=== PATIENT | female | born 1950 | race Caucasian/White ===

== ENCOUNTER → 2020-10-29 12:49 | Outpatient (CLI) | payer MEDICARE, OTHER, SELFPAY ==
--- NOTE | 2020-10-29 | DI.RAD.S_ITS ---
PROCEDURE: FL BARIUM SWALLOW W SPEECH INDICATIONS: Dysphagia, unspecified COMPARISON: None. TECHNIQUE: Examination was conducted in conjunction with speech pathology per standard protocol. In the lateral projection, filming was performed of the patient swallowing. AP projection filming may also be performed with patient swallowing. COMPARISON: FINDINGS: Function: The oral preparatory phase appears normal, with proper containment. The subsequent oral propulsive phase, pharyngeal phase, and esophageal phase of swallowing also appear normal with all proffered substances. No laryngotracheal penetration or aspiration. No pathologic vallecular pooling. Morphology: No cricopharyngeal bar is identified. No cervical esophageal webs. No Zenker's diverticulum. No strictures. IMPRESSION: Over the course of the examination there are several instances of anterior penetration without aspiration of the ingested oral contrast, but the study shows no visualized evidence of dysmotility, either bilateral or unilateral. Please also refer to the dedicated speech therapy swallowing evaluation report, which will be independently generated. Dictated by: Pedro Weems M.D. on 10/29/2020 at 14:36 Approved by: Pedro Weems M.D. on 10/29/2020 at 14:37
--- NOTE | 2020-11-01 11:16 | ST.SWALLOW ---
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 Pt was referred by Dr. Holly , ENT. Pt reported that, for the last couple of months, that she feels a burningpain mid chest when she is eating/ drinking. She noted that she has a medical history of GERD and cerebral aneurism surgery. In addition to the pain with swallowing the pt c/o burping all the time. Additionally, when she bends over she feels a heavy pressure in her chest area. Liquids appear to be a problem in that she can't swallow them sometimes, reporting they stay in my mouth til I spit it out. Solids were reported to be swallowed without difficulty. Subjective Observations Pt was seated in fluoroscopy chair. Instructions and procedure were described to the pt, who indicated she understood and agreed to proceed. Patient Positioning Position View Lateral Imaging Lateral View Textures Administered Trials Presented Thin Liquid via Spoon,Thin Liquid via Cup,Pudding Thick Liquid via Spoon,Regular Textures,Barium Tablet Oral Phase Source: MBSIMP (TM) (C) Bolus Specific Scoring Grid Lip Closure WFL Tongue Control During Bolus Hold WFL Bolus Prep/Mastication WFL Bolus Transport/Lingual Motion WFL A/P Lingual Propulsion Delay No Oral Residue WFL Nasal Regurgitation No Additional Oral Phase Observations OME was observed to be WFL. Natural dentition in good health. Diadochokineses WFL. Pharyngeal Phase Source: MBSIMP (TM) (C) Bolus Specific Scoring Grid Delayed Initiation of Pharyngeal Swallow No: Propmpt swallow Soft Palate Elevation WFL Tongue Base Strength/Range of Motion WFL Residue Along the Tongue Base Yes: Trace to minimal; cleared with second swallow Clearance of Residue Along Tongue Base WFL Laryngeal Elevation WFL Anterior Hyoid Movement WFL Epiglottic Range of Motion WFL Vallecular Residue Yes: Trace to minimal; cleared with second swallow Clearance of Vallecular Residue WFL Laryngeal Vestibular Closure WFL Pharyngeal Stripping Wave WFL Posterior Pharyngeal Wall Residue No Upper Esophageal Sphincter Opening WFL Residue in the Pyriform Sinuses No Esophageal Clearance Upright Position WFL Pharyngoesophageal Backflow Observed No Additional Pharyngeal Phase Observations The pt presented with a normal swallow. Flash laryngeal penetration was observed without aspiration, which is considered to be WFL for people her age. Trace to minimal residual was observed but was cleared with subsequent swallows. During the MBSS, the pt was asked several times if she was experiencing the pain, she initially reported. She denied pain and/or any difficulty with her swallow. A/P View Clinical Impressions Dysphagia Type Normal swallow Patient Appropriate for Therapy No Recommendations
== END ==
PROVIDERS: PCP Family Medicine; Referring Provider Family Medicine; Visit Provider Otolaryngology
DX: R13.10 Dysphagia, unspecified (principal); R07.0 Pain in throat; R09.82 Postnasal drip; K21.9 Gastro-esophageal reflux disease without esophagitis
CPT/HCPCS: 74230; 92611

== ENCOUNTER → 2021-08-10 09:03 | Outpatient (CLI) | payer MEDICARE, OTHER, SELFPAY ==
--- NOTE | 2021-08-10 | DI.MG.S_ITS ---
BILATERAL DIGITAL SCREENING MAMMOGRAM 3D/2D WITH CAD: 08/10/2021 CLINICAL: Routine screening. Family history of breast cancer. Comparison is made to exams dated: 03/25/2018 mammogram, 02/28/2017 mammogram, and 12/08/2015 mammogram - [facility]. There are scattered fibroglandular elements in both breasts. Current study was also evaluated with a Computer Aided Detection (CAD) system. No significant masses, calcifications, or other findings are seen in either breast. There has been no significant interval change. IMPRESSION: NEGATIVE There is no mammographic evidence of malignancy. A 1 year screening mammogram is recommended. This exam was interpreted at Station ID: [id number]. NOTE: For mammograms, a report in lay terms will be sent to the patient. Approximately 15% of breast malignancies will not be visualized mammographically. In the management of a palpable breast mass, a negative mammogram must not discourage biopsy of a clinically suspicious lesion. Electronically Signed By: Wally blackman/antony:08/10/2021 14:18:58 letter sent: Normal Exam ACR BI-RADS Category 1: Negative [id number]
== END ==
PROVIDERS: PCP Family Medicine; Referring Provider Family Medicine; Visit Provider Family Medicine
DX: Z12.31 Encounter for screening mammogram for malignant neoplasm of breast (principal); Z80.3 Family history of malignant neoplasm of breast
CPT/HCPCS: 77063; 77067

== ENCOUNTER → 2023-05-30 11:05 | Outpatient (CLI) | payer MEDICARE, OTHER, SELFPAY ==
--- NOTE | 2023-05-30 | DI.CT.S_ITS ---
PROCEDURE: CT CHEST HIGH RESOLUTION INDICATIONS: Interstitial pulmonary disease, unspecified TECHNIQUE: Noncontrast 1.0 and 5.0 mm thick contiguous axial sections from the pulmonary apex to the posterior costophrenic angles, with 7 mm thick coronal and sagittal MIP reformats. 1 mm thick dynamic expiratory images acquired through the upper, mid, and lower lungs. 1.0 mm thick axial sections acquired from the maty to the posterior costophrenic angles in the prone end-inspiration position. For radiation dose reduction, the following was used: automated exposure control, adjustment of mA and/or kV according to patient size. COMPARISON: [facility], CT, THORAX WITH CONTRAST, 11/13/2007, 8:16. FINDINGS: Image quality: Excellent. Lungs: Basilar reticulation, which is [id number] in extent. Associated bronchiectasis and diffuse air trapping. This has progressed since 2007. No Pleura: No pleural effusions or pneumothorax. Mediastinum: Heart size is normal. No pericardial effusion. Thoracic aorta and central pulmonary arteries are normal in size. Esophagus is normal in caliber. Bones and chest wall: No suspicious bony lesions. No vertebral body compression fractures. Abdomen: Partially visualized right renal cystic lesion. Calcified and noncalcified hepatic cysts, calcified granuloma of the spleen and liver. 1.9 centimeter benign right adrenal adenoma by Hounsfield unit criteria (-9). IMPRESSION: Progressive interstitial lung disease, pattern inconsistent with UIP. This has lower lobe predominance and diffuse air trapping. Differential for this process includes hypersensitivity pneumonitis or small airways disease, but no features are diagnostic. Consider pulmonology referral, if not already performed. Benign right adrenal adenoma Hounsfield units criteria. Dictated by: Oz Morris M.D. on 05/30/2023 at 12:55 Approved by: Oz Morris M.D. on 05/30/2023 at 13:00
== END ==
PROVIDERS: PCP Nurse Practitioner Family; Referring Provider Internal Medicine; Visit Provider Internal Medicine
DX: J84.9 Interstitial pulmonary disease, unspecified (principal); D35.01 Benign neoplasm of right adrenal gland
CPT/HCPCS: 71250

== ENCOUNTER → 2023-06-15 09:51 | Outpatient (CLI) | payer MEDICARE, OTHER, SELFPAY | PROVIDERS: PCP Nurse Practitioner Family; Referring Provider Internal Medicine; Visit Provider Internal Medicine | DX: J84.89 Other specified interstitial pulmonary diseases (principal) | CPT/HCPCS: 94060; 94726; 94729 ==

== ENCOUNTER → 2024-02-18 12:21 | Outpatient (CLI) | payer MEDICARE, OTHER, SELFPAY ==
[2024-02-18 13:27] LABS: Estimated Glomerular Filt Rate 54 mL/min (>60)
== END ==
PROVIDERS: PCP Nurse Practitioner Family; Referring Provider Podiatrist; Visit Provider Podiatrist
DX: M19.071 Primary osteoarthritis, right ankle and foot (principal); M79.671 Pain in right foot
CPT/HCPCS: 36415; 82565

== ENCOUNTER → 2024-03-07 16:46 | Outpatient (CLI) | payer MEDICARE, OTHER, SELFPAY ==
--- NOTE | 2024-03-07 16:49 | DI.MRI.S_ITS ---
PROCEDURE: MR ANKLE RT WO/W CON INDICATIONS: Ganglion, right ankle and foot TECHNIQUE: Noncontrast sagittal T1 spin echo and T2 fast spin echo with fat saturation, axial proton density fast spin echo and T2 fast spin echo with fat saturation, axial T1 spin echo with fat saturation, coronal T1 spin echo and T2 fast spin echo with fat saturation through the ankle/hindfoot. Post-contrast axial, coronal, and sagittal T1 spin echo with fat saturation through the ankle/hindfoot. COMPARISON: [facility], CR, XR FOOT 3+ VIEWS RIGHT, 03/13/2023, 11:05. FINDINGS: Image quality: Excellent. Bones and joints: No acute trabecular bone injury or fracture. No hindfoot coalitions. No osteochondral injuries of the talar dome. Moderate to severe degenerative changes are seen at the naviculocuneiform articulations in the 2nd and 3rd tarsometatarsal joints. Moderate degenerative changes at the remaining tarsometatarsal joints. Small nonedematous plantar calcaneal enthesophyte. Medial structures: The deltoid ligament and the spring ligament complex are intact. Mild posterior tibialis and flexor digitorum longus tenosynovitis. The flexor hallucis longus tendon is intact. The posterior tibial neurovascular bundle appears normal within the tarsal tunnel, without extrinsic mass effect. Lateral structures: Remote prior low-grade sprain of the anterior talofibular ligament and the calcaneofibular ligament. The posterior talofibular ligament is intact. The anterior and posterior tibiofibular ligaments are intact. [id number]-[id number] peroneus brevis and longus tendinosis and tenosynovitis. A cyst is seen extending superiorly from the lateral sinus tarsi towards the extensor retinaculum measuring up to 23 x 13 x 15 mm. This finding appears to be slightly posterior to the palpable abnormality although clinical correlation is recommended. Anterior structures: Adjacent to the skin marker at the dorsum of the foot, there is a somewhat prominent and medially located extensor hallucis brevis muscle. There is adjacent subcutaneous edema or fibrosis with abnormal contour of the overlying skin surface corresponding to radiographic findings. No cyst or solid mass is seen in this location. No enhancing soft tissue mass is seen. The tibialis anterior, extensor hallucis longus, and extensor digitorum longus tendons appear intact. Posterior and plantar structures: Achilles tendon is intact. The proximal plantar fascia is thickened without surrounding edema. There is mild fatty infiltration of the intrinsic foot musculature compatible with mild chronic denervation changes. IMPRESSION: 1. Focal soft tissue prominence is seen adjacent to the skin marker at the dorsum of the foot overlying the naviculocuneiform articulations. Adjacent to the marker, there is a somewhat prominent appearance of the flexor hallucis brevis muscle as well mild edema and possibly fibrotic changes that could be related to repetitive friction or adjacent midfoot degenerative changes. No ganglion cyst or mass is seen in this location. 2. Lobular ganglion cyst arising from the lateral sinus tarsi extends superiorly towards the extensor retinaculum it measures up to 23 mm. This appears to be posterior to the palpable abnormality, although clinical correlation is recommended. 3. 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 Moderate degenerative changes are seen throughout the remainder of the midfoot. 4. Remote prior low-grade sprain of the anterior talofibular ligament and the calcaneofibular ligament. 5. Vbzo-mj-zezvftrg peroneus brevis and longus tendinosis and tenosynovitis. 6. Mild tenosynovitis of the medial flexor tendons. 7. Chronic proximal plantar fasciitis. Approved by: Robin Rodriguez M.D. on 03/11/2024 at 10:56
== END ==
PROVIDERS: PCP Nurse Practitioner Family; Referring Provider Podiatrist; Visit Provider Podiatrist
DX: M67.471 Ganglion, right ankle and foot (principal); M19.071 Primary osteoarthritis, right ankle and foot; S93.491A Sprain of other ligament of right ankle, initial encounter; S93.411A Sprain of calcaneofibular ligament of right ankle, initial encounter; M65.871 Other synovitis and tenosynovitis, right ankle and foot; M72.2 Plantar fascial fibromatosis
CPT/HCPCS: 73723; A9579

== ENCOUNTER → 2024-12-09 09:28 | Outpatient (CLI) | payer MEDICARE, OTHER, SELFPAY ==
--- NOTE | 2024-12-09 14:29 | ST.SWALLOW ---
Visit Care Team Role Provider Type NADIR Beckman Primary Care Provider Non-Staff Specialty: Nursing Address: [address] [place] [address], [id number] Email: Isrrael Holly MD Attending Provider Physician Referring Provider Specialty: Ear, Nose, Throat Address: [address] [place] [address], [address] Email: 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 Holly, ENT Setting Setting Acute Care Patient Information Identification Type Name,Date of Patient History Pt was seen for a MBSS with c/ o difficulty swallowing. Pt was last seen for an MBSS on 10/29. The results indicated a normal swallow. Pt has a PMH that includes GERD progressive interstitial lung disease and surgery for cranial aneurisms. Pt described her swallow as coughing with liquids and c/o a lot of mucous that triggers a cough. Relative to liquids, the pt noted that she can't swallow them sometimes, reporting they stay in my mouth til I spit it out. She denied difficulty swallowing solid foods and/or pills. Pt reported hat She was concerned that her voice has become 'raspy. Subjective Observations Pt was seated in the fluoroscopy chair with directions and procedures described for her. She indicated she understood and agreed to proceed. Patient Positioning Position View Lat-A/P Imaging Lateral View Textures Administered Trials Presented Thin Liquid via Spoon (IDDSI 0 ),Thin Liquid via Cup (IDDSI 0 ),Extremely Thick Liquid via Spoon (IDDSI 4),Regular (IDDSI 7) Barium Tablet Yes The IDDSI Framework Protocol: IDDSI.1 Oral Impairment Source: The Modified Barium Swallow Impairment Profile (MBSImP??) Lip Closure No labial escape Tongue Control During Bolus Hold Cohesive bolus between tongue to palatal seal Bolus Preparation/Mastication Timely & efficient chewing & mashing Bolus Transport/Lingual Motion Brisk tongue motion Oral Residue Complete oral clearance Initiation of Pharyngeal Swallow Bolus head at posterior laryngeal surface of epiglottis Additional Oral Impairment Observations *OME and DKS were observed to be WNL. *Dentition natural and in good hygiene *Mastication observed with rotary chew pattern. *Good bolus formation, control and AP transition. Pharyngeal Impairment Source: The Modified Barium Swallow Impairment Profile (MBSImP??) Soft Palate Elevation No bolus between soft palate & pharyngeal wall Laryngeal Elevation Part.sup.move.thyroid cart/ part.approx.arytenoids to epiglot.petiole Anterior Hyoid Excursion Partial anterior movement Epiglottic Movement Complete inversion Laryngeal Vestibular Closure Complete; no air/contrast in laryngeal vestibule Pharyngeal Stripping Wave Present - complete Pharyngoesophageal Segment Opening Complete distention & complete duration; no obstruction of flow Tongue Base Retraction No contrast between tongue base & posterior pharyngeal wall Pharyngeal Residue Complete pharyngeal clearance Additional Pharyngeal Impairment *Adequate base of tongue Observations retraction strength *Normal hyolaryngeal elevation and movement and epiglottic inversion. *No laryngeal penetration or tracheal aspiration observed *Pharyngeal phase observed to be WNL A/P View Textures Administered Trials Presented Thin Liquid via Spoon (IDDSI 0 ) The IDDSI Framework Protocol: IDDSI.1 A/P View Observations Pharyngeal Contraction Complete Esophageal Clearance Upright Position Complete clearance; esophageal coating Vocal Fold Function Good Esophageal Function WFL Additional A-P Observations Esophageal phase of swallowing WNL Clinical Impressions Dysphagia Type WNL Findings Normal swallow observed across all phases. NOTE: Pt mentioned her voice was becoming raspy. She also noted that she typically has difficulty swallowing liquids. 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 this may be a factor regarding the pt report that she coughs when swallowing liquids and/or phlegm Recommend referral to ST for voice evaluation and treatment if indicated. Rehabilitation Potential Excellent Patient Appropriate for Therapy Yes Recommendations Diet Comments No diet change is recommended at this time Treatment Plan Therapy Recommendations Inpatient Speech Therapy
== END ==
PROVIDERS: PCP Nurse Practitioner Family; Referring Provider Otolaryngology; Visit Provider Otolaryngology
DX: R13.10 Dysphagia, unspecified (principal)
CPT/HCPCS: 74230; 92611